=== PATIENT | male | born 1975 | race Caucasian/White ===

== ENCOUNTER 2022-09-16 21:20 | Emergency (ER) | payer OTHER ==
[~2022-09-16] VITALS: Ht 185.4 cm; Wt 101.6 kg
[2022-09-16] MEDS ORDERED: KETOROLAC 30MG VIAL (30MG/ML) ONE (21:43)
[2022-09-16] MEDS ORDERED: 0.9%NACL 1000ML 1,000 ML IV ONE ×2 (21:43→22:00)
[2022-09-16 21:50] LABS: BASOPHILS % (AUTO) 0.8 % (0.0-5.0); EOSINOPHILS % (AUTO) 1.3 % (0.0-8.0); HEMATOCRIT 34.9 % (42-54); LYMPHOCYTES % (AUTO) 15.3 % (21.0-51.0); MEAN CORPUSCULAR HEMOGLOBIN 26.3 pg (27.0-33.0); MEAN CORPUSCULAR HGB CONC 31.2 g/dL (32.0-36.0); MEAN CORPUSCULAR VOLUME 84.3 fL (79-99); MONOCYTES % (AUTO) 6.5 % (3.0-13.0); NEUTROPHILS % (AUTO) 75.8 % (40.0-77.0); PLATELET COUNT (AUTO) 136 K/uL (130-400); RED BLOOD CELL COUNT(AUTO) 4.14 MIL/uL (4.50-6.20); RED CELL DISTRIBUTION WIDTH 17.5 % (11.0-15.5)
[2022-09-16 21:51] LABS: APPEARANCE,URINE CLEAR (CLEAR); BILIRUBIN,URINE NEGATIVE (NEGATIVE); COLOR,URINE LIGHT-YELLOW (YELLOW); GLUCOSE, URINE (UA) NEGATIVE (NEGATIVE); KETONES,URINE NEGATIVE (NEGATIVE); LEUKOCYTE ESTERASE ,URINE 250 Leu/uL (NEGATIVE); NITRATE,URINE 2+ (NEGATIVE); OCCULT BLOOD,URINE NEGATIVE (NEGATIVE); PH,URINE 5.5 (5.0-8.0); PROTEIN,URINE NEGATIVE (NEGATIVE); UROBILINOGEN,URINE 0.2 mg/dL (0.2-1.0)
[2022-09-16 21:58] LABS: BACTERIA,URINE RARE /HPF (None Seen); CREATININE 1.2 mg/dL (0.5-1.5); MUCUS,URINE RARE LPF (None Seen); POTASSIUM 3.8 mmol/L (3.5-5.1); SQUAMOUS EPITHELIAL CELL,UR FEW /HPF (0-2); WBC,URINE 26-50 /HPF (0-1)
[2022-09-16] MEDS ORDERED: KETOROLAC 30MG VIAL (30MG/ML) IVP ONE (22:00)
[2022-09-16 22:06] LABS: ALBUMIN 3.3 g/dL (3.5-5.0); TOTAL PROTEIN, SERUM 6.5 g/dL (6.0-8.3)
[2022-09-16] MEDS ORDERED: MORPHINE 4 MG SYG ONE (22:17)
[2022-09-16] MEDS ORDERED: MORPHINE 4 MG SYG IVP ONE (22:30)
[2022-09-16] MEDS ORDERED: CEFTRIAXONE 1G VIAL ONE (22:47)
[2022-09-16] MEDS ORDERED: CEPH500B PO (22:55)
[2022-09-16] MEDS ORDERED: ACET-2079 PO (22:55)
[2022-09-16 22:59] VITALS: BP 131/75
[2022-09-16] MEDS ORDERED: CEFTRIAXONE 1G VIAL IVP ONE (23:00)
== END 2022-09-16 23:09 | disposition home or self-care (01) ==
LOC: EDH 21:20
DX: N10 Acute pyelonephritis (principal); Z87.442 Personal history of urinary calculi; Z98.890 Other specified postprocedural states
CPT/HCPCS: 99284; 74176; 96374; 96375; 96361; 80053; 85025; 87077; 87088; 87186; 81001; 36415; J7030; J0696; J2270; J1885

== ENCOUNTER 2022-09-19 17:38 | Emergency (ER) | payer OTHER ==
[~2022-09-19] VITALS: Ht 185.4 cm; Wt 98.9 kg
[~2022-09-19 17:38] MED LIST: ACET-2079 PO; CEPH500B PO
[2022-09-19] MEDS ORDERED: 0.9%NACL 1000ML 1,000 ML IV SCH (18:30)
[2022-09-19] MEDS ORDERED: PROMETHAZINE HCL 25 MG/ML 1ML AMPULE IM ONE (18:30)
[2022-09-19] MEDS ORDERED: KETOROLAC 30MG VIAL (30MG/ML) IVP ONE (18:30)
[2022-09-19 18:35] LABS: BASOPHILS % (AUTO) 0.8 % (0.0-5.0); EOSINOPHILS % (AUTO) 1.7 % (0.0-8.0); HEMATOCRIT 34.5 % (42-54); LYMPHOCYTES % (AUTO) 31.9 % (21.0-51.0); MEAN CORPUSCULAR HEMOGLOBIN 26.1 pg (27.0-33.0); MEAN CORPUSCULAR HGB CONC 30.4 g/dL (32.0-36.0); MEAN CORPUSCULAR VOLUME 85.8 fL (79-99); MONOCYTES % (AUTO) 7.3 % (3.0-13.0); PLATELET COUNT (AUTO) 159 K/uL (130-400); RED BLOOD CELL COUNT(AUTO) 4.02 MIL/uL (4.50-6.20); RED CELL DISTRIBUTION WIDTH 17.5 % (11.0-15.5); WHITE BLOOD COUNT (AUTO) 3.6 K/uL (4.8-10.8)
[2022-09-19 18:37] LABS: APPEARANCE,URINE CLEAR (CLEAR); BILIRUBIN,URINE NEGATIVE (NEGATIVE); COLOR,URINE YELLOW (YELLOW); GLUCOSE, URINE (UA) NEGATIVE (NEGATIVE); KETONES,URINE NEGATIVE (NEGATIVE); LEUKOCYTE ESTERASE ,URINE 250 Leu/uL (NEGATIVE); NITRATE,URINE NEGATIVE (NEGATIVE); OCCULT BLOOD,URINE NEGATIVE (NEGATIVE); PROTEIN,URINE 10 mg/dL (NEGATIVE)
[2022-09-19 18:46] LABS: MUCUS,URINE RARE LPF (None Seen); SQUAMOUS EPITHELIAL CELL,UR MOD /HPF (0-2)
[2022-09-19 18:54] LABS: CREATININE 1.1 mg/dL (0.5-1.5); POTASSIUM 4.2 mmol/L (3.5-5.1)
[2022-09-19 18:59] LABS: ALBUMIN 3.2 g/dL (3.5-5.0); TOTAL PROTEIN, SERUM 6.3 g/dL (6.0-8.3)
[2022-09-19] MEDS ORDERED: CEFTRIAXONE 1G VIAL IVP ONE (19:00)
[2022-09-19] MEDS ORDERED: PHENAZOPYRIDINE HCL 200 MG TABLET PO ONE (19:00)
[2022-09-19] MEDS ORDERED: ACETAMINOPHEN 500 MG TABLET PO ONE (19:00)
[2022-09-19] MEDS ORDERED: CEFU500T67 PO (19:51)
[2022-09-19] MEDS ORDERED: PHEN-847 PO (19:51)
[2022-09-19] MEDS ORDERED: KETO10 PO (19:51)
[2022-09-19 20:05] VITALS: BP 111/68
== END 2022-09-19 20:22 | disposition home or self-care (01) ==
LOC: EDH 17:38
DX: N39.0 Urinary tract infection, site not specified (principal); R79.89 Other specified abnormal findings of blood chemistry; K76.0 Fatty (change of) liver, not elsewhere classified; Z87.442 Personal history of urinary calculi; Z98.890 Other specified postprocedural states; Z79.899 Other long term (current) drug therapy
CPT/HCPCS: 99285; 96374; 76705; 96361; 96375; 80053; 83690; 85025; 83605; 86140; 81001; 36415; 96372; J7030; J2550; J0696; J1885